=== PATIENT | male | born 1970 | race Caucasian/White ===

== ENCOUNTER 2024-03-14 18:48 | Inpatient (IN) | payer OTHER ==
[~2024-03-14] VITALS: Ht 172.7 cm; Wt 73.9 kg
[2024-03-14] MEDS: MAGNESIUM/ALUMINUM HYDROXIDE/SIMETHICONE 30ML UDC PO STA (20:08)
[2024-03-14] MEDS: PANTOPRAZOLE SODIUM 40 MG/VIAL IV STA (20:08)
[2024-03-14] MEDS: FAMOTIDINE 20MG TABLET PO STA (20:09)
[2024-03-14] MEDS: SODIUM CHLORIDE 0.9% 1,000 ML IV ONE (20:09)
[2024-03-14 20:58] LABS: HEMATOCRIT. 41.7 % (42.0-52.0); HEMOGLOBIN. 14.3 g/dL (14.0-18.0); MEAN CORPUSCULAR HEMOGLOBIN 29.3 pg (28.0-32.0); MEAN CORPUSCULAR HGB CONC 34.3 g/dL (31.0-37.0); MEAN CORPUSCULAR VOLUME 85.4 fL (80.0-94.0); MEAN PLATELET VOLUME 8.4 fl (7.4-10.4); PLATELET 241 x1000/uL (130-400); RED BLOOD CELL COUNT 4.88 mill/uL (4.7-6.1); RED CELL DISTRIBUTION WIDTH 13.2 % (11.6-14.6); WHITE BLOOD COUNT 12.2 x1000/uL (4.5-11.0)
[2024-03-14 20:59] LABS: DIFFERENTIAL COMMENT 1
[2024-03-14 21:00] LABS: CHLORIDE 103 mEq/L (98-107); POTASSIUM 4.4 mEq/L (3.5-5.1); SODIUM 134 mEq/L (136-145)
[2024-03-14 21:01] LABS: CALCIUM 9.6 mg/dL (8.7-10.4); CARBON DIOXIDE 25 mEq/L (21-32)
[2024-03-14 21:06] LABS: CREATININE 1.2 mg/dL (0.6-1.3); GLUCOSE 286 mg/dL (70-105); UREA NITROGEN BLOOD 22 mg/dL (9-23)
[2024-03-14 21:08] LABS: ALANINE AMINOTRANSFERASE 21 IU/L (10-49); ALBUMIN 4.8 g/dL (3.2-4.8); ASPARTATE AMINOTRANSFERASE 20 IU/L (<34); BILIRUBIN DIRECT 0.6 mg/dL (<=3.0); BILIRUBIN TOTAL 2.1 mg/dL (0.1-1.0); PROTEIN TOTAL 7.8 g/dL (6.0-8.3)
[2024-03-14 21:14] LABS: PARTIAL THROMBOPLASTIN TIME 23.9 sec (23.4-31.0); PROTHROMBIN TIME 10.8 sec (9.6-11.0)
[2024-03-14 22:06] LABS: PLATELET ESTIMATE NORMAL
[2024-03-14] MEDS: HYDRALAZINE 20MG/ML VIAL IV ONE (23:02)
[2024-03-14] MEDS ORDERED: DOCUSATE SODIUM 100MG CAPSULE PO PRN (23:15)
[2024-03-14] MEDS ORDERED: HYDROCODONE/ACETAMINOPHEN 7.5/325MG TABLET PO PRN (23:15)
[2024-03-14] MEDS ORDERED: PANTOPRAZOLE 80 MG in SODIUM CHLORIDE 0.9% 100 ML IV SCH (23:15)
[2024-03-14] MEDS ORDERED: PHYTONADIONE 1MG/0.5ML INJ IM NR (23:15)
[2024-03-14] MEDS ORDERED: IPRATROPIUM/ALBUTEROL 0.5-3(2.5)MG/3ML NEB HHN PRN (23:15)
[2024-03-14] MEDS ORDERED: DEXTROSE 50% WATER 50ML SYRINGE IV PRN (23:15)
[2024-03-14] MEDS ORDERED: MAGNESIUM/ALUMINUM HYDROXIDE/SIMETHICONE 30ML UDC PO PRN (23:15)
[2024-03-14] MEDS ORDERED: ACETAMINOPHEN 325MG TABLET PO PRN (23:15)
[2024-03-14] MEDS: MVI, ADULT NO.1 10 ML, FOLIC ACID 1 MG, THIAMINE HCL 100 MG in SODIUM CHLORIDE 0.9% 1,0... IV SCH (23:15)
[2024-03-14 23:38] LABS: CLARITY URINE CLEAR (CLEAR); COLOR URINE YELLOW (YELLOW); GLUCOSE URINE 3+ (NEGATIVE); KETONES URINE 2+ (NEGATIVE); LEUKOCYTE ESTERASE URINE NEGATIVE (NEGATIVE); NITRITE URINE NEGATIVE (NEGATIVE); OCCULT BLOOD URINE NEGATIVE (NEGATIVE); PH URINE 5.5 (4.5-8.0); PROTEIN URINE 1+ (NEGATIVE); SPECIFIC GRAVITY URINE 1.024 (1.005-1.030); UROBILINOGEN URINE 0.2 E.U./dL (0.2-1.0)
[2024-03-14 23:47] LABS: *AMPHETAMINES SCREEN URINE PRESUMPTIVE POSITIVE (NEGATIVE); *BARBITURATES SCREEN URINE NEGATIVE (NEGATIVE); *BENZODIAZEPINES SCREEN URINE NEGATIVE (NEGATIVE); *COCAINE SCREEN URINE NEGATIVE (NEGATIVE)
[2024-03-14 23:48] LABS: CANNABINOID URINE SCREEN NEGATIVE (NEGATIVE); ECSTASY MDMA SCREEN URINE NEGATIVE (NEGATIVE); METHADONE URINE SCREEN NEGATIVE (NEGATIVE); OPIATES URINE SCREEN NEGATIVE (NEGATIVE); PHENCYCLIDINE URINE SCREEN NEGATIVE (NEGATIVE)
[2024-03-15] VITALS (9 sets, daily range): BP systolic 96–156; BP diastolic 61–95; PULSE 66–84; RESP 12–17; TEMP 95.4–98.4
[2024-03-15] MEDS: PHYTONADIONE 10MG/ML INJ IM NR (00:09)
[2024-03-15 01:18] LABS: AMYLASE 38 IU/L (30-118)
[2024-03-15 01:19] LABS: AMMONIA < 17 uMol/L (<32); GAMMA GLUTAMYL TRANSPEPTIDASE 38 IU/L (<73); PHOSPHORUS 3.3 mg/dL (2.5-4.9)
[2024-03-15 01:27] LABS: FOLIC ACID (FOLATE) SERUM > 20.00 ng/mL (>5.38); VITAMIN B12 SERUM 530 pg/mL (211-911)
[2024-03-15 01:38] LABS: LACTATE DEHYDROGENASE 194 IU/L (120-246)
[2024-03-15] MEDS: PANTOPRAZOLE 80 MG in SODIUM CHLORIDE 0.9% 100 ML IV SCH (02:00)
[2024-03-15 02:20] LABS: TROPONIN I HIGH SENSITIVITY 4 ng/L (3.0-53)
[2024-03-15 02:49] LABS: BACTERIA URINE NONE SEEN; SQUAMOUS EPITHELIAL CELL URINE NONE SEEN /lpf (RARE/1+); WBC URINE 0-2 /hpf (0-2)
[2024-03-15 03:46] LABS: BASOPHILS % 0.3 % (0.0-2.0); HEMATOCRIT. 40.8 % (42.0-52.0); HEMOGLOBIN. 14.1 g/dL (14.0-18.0); LYMPHOCYTES % 18.7 % (20.0-50.0); MEAN CORPUSCULAR HGB CONC 34.7 g/dL (31.0-37.0); MEAN CORPUSCULAR VOLUME 83.6 fL (80.0-94.0); MEAN PLATELET VOLUME 8.3 fl (7.4-10.4); MONOCYTES % 6.9 % (2.0-8.0); NEUTROPHILS % 74.1 % (40.0-76.0); PLATELET 251 x1000/uL (130-400); RED BLOOD CELL COUNT 4.88 mill/uL (4.7-6.1); RED CELL DISTRIBUTION WIDTH 13.2 % (11.6-14.6); WHITE BLOOD COUNT 10.1 x1000/uL (4.5-11.0)
[2024-03-15 04:02] LABS: POTASSIUM 4.1 mEq/L (3.5-5.1)
[2024-03-15 04:04] LABS: CALCIUM 9.5 mg/dL (8.7-10.4)
[2024-03-15 04:05] LABS: CREATINE KINASE MB FRACTION 1.2 ng/mL (0.5-3.6)
[2024-03-15 04:08] LABS: CREATININE 1.3 mg/dL (0.6-1.3)
[2024-03-15 04:09] LABS: THYROID STIMULATING HORMONE 0.38 uIU/mL (0.55-4.78)
[2024-03-15 04:10] LABS: ALBUMIN 4.4 g/dL (3.2-4.8)
[2024-03-15] MEDS: MAGNESIUM 2 G PREMIX 50 ML IV NR (06:45)
[2024-03-15] MEDS: INSULIN LISPRO 100 UNITS/ML SUBCUT SCH (08:39)
[2024-03-15] MEDS: BLOOD SUGAR DIAGNOSTIC STRIP TEST SCH (09:00)
[2024-03-15] MEDS: THIAMINE HCL 100MG TABLET PO SCH (11:07)
[2024-03-15] MEDS: FOLIC ACID 1MG TABLET PO SCH (11:07)
[2024-03-15 15:37] LABS: CREATINE KINASE 108 IU/L (46-171)
[2024-03-15 15:42] LABS: CREATINE KINASE MB FRACTION 0.7 ng/mL (0.5-3.6)
[2024-03-15 16:02] LABS: TROPONIN I HIGH SENSITIVITY < 4 ng/L (3.0-53)
[2024-03-16] VITALS (11 sets, daily range): BP systolic 97–206; BP diastolic 64–112; PULSE 62–98; RESP 10–25; TEMP 97.3–99.8
[2024-03-16 06:18] LABS: HEMATOCRIT 38.2 % (42.0-52.0); HEMOGLOBIN 13.1 g/dL (14.0-18.0); MEAN CORPUSCULAR HGB CONC 34.4 g/dL (31.0-37.0); MEAN CORPUSCULAR VOLUME 84.4 fL (80.0-94.0); PLATELET 225 x1000/uL (130-400); RED BLOOD CELL COUNT 4.52 mill/uL (4.7-6.1); RED CELL DISTRIBUTION WIDTH 13.3 % (11.6-14.6)
[2024-03-16 06:43] LABS: CARBON DIOXIDE 24 mEq/L (21-32); CHLORIDE 106 mEq/L (98-107); SODIUM 137 mEq/L (136-145)
[2024-03-16 06:44] LABS: CALCIUM 9.3 mg/dL (8.7-10.4)
[2024-03-16 06:49] LABS: GLUCOSE 148 mg/dL (70-105); UREA NITROGEN BLOOD 18 mg/dL (9-23)
[2024-03-16 06:51] LABS: PHOSPHORUS 2.9 mg/dL (2.5-4.9)
[2024-03-16] MEDS: ONDANSETRON HCL 4MG/2ML INJ IV PRN (10:39)
[2024-03-16] MEDS: MORPHINE SULFATE 2 MG/ML CPJ (NOT FOR IM USE) IV PRN (11:06)
[2024-03-16] MEDS: HYDRALAZINE 20MG/ML VIAL IV PRN (11:11)
[2024-03-16] MEDS ORDERED: DIPHENHYDRAMINE 25MG CAPSULE PO NR (11:30)
[2024-03-16] MEDS: DIPHENHYDRAMINE 50MG/ML VIAL IV NR (12:07)
[2024-03-16] MEDS: INSULIN GLARGINE 100 UNITS/ML SUBCUT SCH (12:11)
[2024-03-16] MEDS ORDERED: NALOXONE HCL 0.4MG/ML VIAL IV PRN (12:15)
[2024-03-16] MEDS: DEXT 5%/0.9% NACL 1,000 ML IV SCH (12:59)
[2024-03-16] MEDS: HYDRALAZINE 20MG/ML VIAL IV NR ×2 (13:32→13:45)
[2024-03-16] MEDS: CLONIDINE 0.1MG TABLET PO SCH (14:00)
[2024-03-16] MEDS: METOCLOPRAMIDE HCL 10MG/2ML VIAL IV NR (15:29)
[2024-03-16] MEDS: MORPHINE SULFATE 2 MG/ML CPJ (NOT FOR IM USE) IV NR (15:30)
[2024-03-16 16:35] LABS: AMYLASE 36 IU/L (30-118)
[2024-03-16] MEDS: PANTOPRAZOLE 80 MG in SODIUM CHLORIDE 0.9% 100 ML IV SCH (17:36)
[2024-03-17] VITALS (13 sets, daily range): BP systolic 102–169; BP diastolic 62–96; PULSE 58–75; RESP 11–21; TEMP 96.6–98.6
[2024-03-17] MEDS ORDERED: PANTOPRAZOLE SODIUM 40 MG/VIAL IV SCH (09:00)
[2024-03-17 09:57] LABS: HEMATOCRIT 37.2 % (42.0-52.0); MEAN CORPUSCULAR HEMOGLOBIN 29.8 pg (28.0-32.0); MEAN CORPUSCULAR HGB CONC 34.8 g/dL (31.0-37.0); MEAN CORPUSCULAR VOLUME 85.5 fL (80.0-94.0); PLATELET 246 x1000/uL (130-400); RED BLOOD CELL COUNT 4.35 mill/uL (4.7-6.1); WHITE BLOOD COUNT 6.2 x1000/uL (4.5-11.0)
[2024-03-17 10:51] LABS: CHLORIDE 107 mEq/L (98-107); POTASSIUM 3.8 mEq/L (3.5-5.1); SODIUM 138 mEq/L (136-145)
[2024-03-17 10:52] LABS: CALCIUM 8.8 mg/dL (8.7-10.4); CARBON DIOXIDE 23 mEq/L (21-32)
[2024-03-17 10:57] LABS: GLUCOSE 186 mg/dL (70-105)
[2024-03-17 10:58] LABS: UREA NITROGEN BLOOD 15 mg/dL (9-23)
[2024-03-17 10:59] LABS: ALANINE AMINOTRANSFERASE 16 IU/L (10-49); ALBUMIN 3.8 g/dL (3.2-4.8); ASPARTATE AMINOTRANSFERASE 17 IU/L (<34)
[2024-03-17 11:00] LABS: BILIRUBIN TOTAL 1.7 mg/dL (0.1-1.0); PROTEIN TOTAL 6.3 g/dL (6.0-8.3)
[2024-03-17] MEDS: SUCRALFATE 1G TABLET PO SCH (14:00)
[2024-03-17] MEDS: PANTOPRAZOLE 40MG DR TABLET PO SCH (21:32)
[2024-03-18] VITALS (10 sets, daily range): BP systolic 111–183; BP diastolic 52–98; PULSE 52–67; RESP 13–29; TEMP 96.7–98.4; O2SAT 97
[2024-03-18 07:05] LABS: CARBON DIOXIDE 25 mEq/L (21-32); CHLORIDE 108 mEq/L (98-107); POTASSIUM 3.8 mEq/L (3.5-5.1); SODIUM 140 mEq/L (136-145)
[2024-03-18 07:06] LABS: CALCIUM 8.9 mg/dL (8.7-10.4)
[2024-03-18 07:09] LABS: CREATININE 0.8 mg/dL (0.6-1.3)
[2024-03-18 07:11] LABS: GLUCOSE 105 mg/dL (70-105); UREA NITROGEN BLOOD 10 mg/dL (9-23)
[2024-03-18 07:13] LABS: PHOSPHORUS 3.8 mg/dL (2.5-4.9)
[2024-03-18 10:14] LABS: HEMATOCRIT 35.9 % (42.0-52.0); HEMOGLOBIN 12.3 g/dL (14.0-18.0); MEAN CORPUSCULAR HEMOGLOBIN 29.6 pg (28.0-32.0); MEAN CORPUSCULAR HGB CONC 34.4 g/dL (31.0-37.0); MEAN CORPUSCULAR VOLUME 85.8 fL (80.0-94.0); PLATELET 230 x1000/uL (130-400); RED BLOOD CELL COUNT 4.18 mill/uL (4.7-6.1); RED CELL DISTRIBUTION WIDTH 13.2 % (11.6-14.6); WHITE BLOOD COUNT 6.7 x1000/uL (4.5-11.0)
[2024-03-18] MEDS ORDERED: BARIUM SULFATE 176 GM SUSP.RECON ONE (10:48)
[2024-03-18] MEDS ORDERED: BARIUM SULFATE 450ML ORAL SUSP ONE (10:49)
[2024-03-18] MEDS ORDERED: SIMETHICONE/SOD BICARB/CIT AC 1 EACH GRAN.EF.PK ONE (10:50)
[2024-03-18] MEDS ORDERED: PANT40TA51 PO (15:10)
== END 2024-03-18 18:54 | disposition home or self-care (01) | DRG 241 ==
LOC: ER 18:48 → 5EST 23:15 → EDBEDREQSVC 03-15 00:18
PROVIDERS: ADMIT Internal Medicine; ATTEND Internal Medicine
DX: K27.9 Peptic ulcer, site unspecified, unspecified as acute or chronic, without hemorrhage or perforation (principal); K85.90 Acute pancreatitis without necrosis or infection, unspecified; R13.14 Dysphagia, pharyngoesophageal phase; E87.1 Hypo-osmolality and hyponatremia; R17 Unspecified jaundice; I10 Essential (primary) hypertension; E11.9 Type 2 diabetes mellitus without complications; F19.10 Other psychoactive substance abuse, uncomplicated; K44.9 Diaphragmatic hernia without obstruction or gangrene; K57.30 Diverticulosis of large intestine without perforation or abscess without bleeding; Z79.84 Long term (current) use of oral hypoglycemic drugs; K29.70 Gastritis, unspecified, without bleeding
CPT/HCPCS: 36415; 71045; 74018; 74176; 74220; 80048; 80053; 80061; 80076; 80305; 81003; 82040; 82140; 82150; 82550; 82553; 82607; 82746; 82962; 82977; 83036; 83605; 83615; 83735; 84100; 84145; 84443; 84484; 85025; 85027; 85044; 86850; 86900; 92610; 93005; 93970; 97161; 97165; 99291; C9113; J0360; J1200; J1815; J2270; J2405; J2765; J3411; J3430; J3475; J3490; J7030; J7042; J7050; J7517; Q0163